=== PATIENT | female | born 1945 | race Caucasian/White ===

== ENCOUNTER → 2020-03-02 | Outpatient (CLI) | payer MEDICARE ==
[~2020-03-02] MED LIST: AMOX125S17 PO; LEVO88TA4 PO; PRED-220 PO
== END ==
LOC: LAB 09:50
PROVIDERS: ATTEND Nurse Anesthetist, Certified Registered
DX: Z01.818 Encounter for other preprocedural examination (principal); R13.10 Dysphagia, unspecified; Z20.828 Contact with and (suspected) exposure to other viral communicable diseases
CPT/HCPCS: U0003

== ENCOUNTER → 2020-03-06 | Day surgery (SDC) | payer MEDICARE ==
[~2020-03-06] MED LIST changes: +IPRATRPIUM/ALBUTEROL 0.5/2.5MG 3 ML NEBU. NEB PRN; +IV RINGERS SOLUTION,LACTATED 1,000 ML IV SCH; +LIDOCAINE 2% PF 5 ML VIAL. ONE; +MIDAZOLAM HCL PF 2 MG/2 ML VIAL. IV ONE; +ONDANSETRON PF 4 MG/2 ML VIAL. IV PRN; +PROPOFOL 10,000 MCG/ML (20ML) VIAL IV ONE
--- NOTE | 2020-03-08 23:06 | PATHOLOGY ---
[facility] Accession Number: [id number] . 01 Material submitted: . PART A: stomach - GASTRIC BIOPSY PART B: esophagus - DISTAL ESOPHAGUS BIOPSY. Modifiers: distal . 02 Diagnosis: A. "Gastric BX", biopsy: - Gastric mucosa with mild reactive changes and mild chronic inflammation. - Negative H. pylori immunohistochemical stain (block A1); control reacted appropriately. . B. "Distal esophagus BX", biopsy: - Esophageal squamous mucosa with mild reactive changes; no significant inflammation (including eosinophils), glandular epithelium or dysplasia seen. . (CLW:mml; 03/08/2020) [facility] 03/08/2020 1110 Local . 02 Electronically signed: . Caroline Avendaño MD, Pathologist NPI- [id number] . 01 Gross description: . A. The specimen is received in formalin, labeled "Troy, Erin, gastric BX" and consists of 2 fragments of pink-penn tissue measuring 0.5 x 0.2 cm and 0.6 x 0.2 cm which are entirely submitted in A1. . B. The specimen is received in formalin, labeled "Troy, Erin, distal esophagus" and consists of a translucent fragment of pink tissue measuring 0.8 x 0.3 cm which is entirely submitted in B1. (SDY; 03/07/2020) SYU/SYU 03/07/2020 1304 Local . 02 Pathologist provided ICD-10: K29.50 . 02 CPT . 293687, 903545, [id number] Specimen Comment: A courtesy copy of this report has been sent to [phone] Specimen Comment: [phone] Specimen Comment: Report sent to / Performed at: 01 [facility] [address], [place] [id number] MD Waqar Rossi MD Phone: [phone] Performed at: 02 [facility] [address], [place] [id number] MD Khai Medina MD Phone: [phone]
== END | disposition home or self-care (01) ==
LOC: SURG 09:25
PROVIDERS: ATTEND Emergency Medicine
DX: Z12.11 Encounter for screening for malignant neoplasm of colon (principal); R13.10 Dysphagia, unspecified; K29.50 Unspecified chronic gastritis without bleeding; K44.9 Diaphragmatic hernia without obstruction or gangrene; K57.30 Diverticulosis of large intestine without perforation or abscess without bleeding; K64.8 Other hemorrhoids; K22.2 Esophageal obstruction; Z86.010 Personal history of colon polyps; Z79.899 Other long term (current) drug therapy; Z98.890 Other specified postprocedural states
CPT/HCPCS: 43239; 43450; 88305; 88342; G0105; J2001; J2704; J7120; 43249; 45378; 99284